=== PATIENT | male | born 1995 | race Caucasian/White ===

== ENCOUNTER 2017-01-06 11:35 | Emergency (ER) | payer SELFPAY ==
[~2017-01-06] VITALS: Ht 180.3 cm; Wt 110.0 kg
[~2017-01-06 11:35] MED LIST: PENI500T PO; ZOFR4TAB3 PO
[2017-01-06 11:37] VITALS: BP 146/97; PULSE 116; RESP 20; TEMP 98; O2SAT 99
--- NOTE | 2017-01-06 11:55 | PD ---
HPI Chief Complaint: Pain: Acute or Chronic Time Seen by Provider: 11:55 Travel History International Travel<30 days: No Contact w/Intl Traveler<30days: No Traveled to known affect area: No History of Present Illness HPI 21-year-old male with no significant medical history presents to emergency department for evaluation a left dorsal lateral foot pain with no definite injury. States he is unable to ambulate on his foot for the last 2 days. Pain is 8 out of 10. Denies any fever or chills. No alterations in sensation. No other symptoms to report. PFSH Past Medical History Medical History: Denies Significant Hx Social History Alcohol Use: No Tobacco Use: No Substance Use: No Allergies-Medications (Allergen,Severity, Reaction): Coded Allergies: No Known Allergies (Unverified , 01/06/17) Reported Meds & Prescriptions Reported Meds & Active Scripts Active Ibuprofen 800 Mg Tab 800 Mg PO Q8H PRN Penicillin V Potassium 500 Mg Tab 500 Mg PO Q8H 10 Days Review of Systems Except as stated in HPI: all other systems reviewed are Neg Physical Exam Narrative GENERAL: Well-nourished, well-developed male patient, in no acute distress SKIN: Warm and dry. HEAD: Normocephalic. EYES: No scleral icterus. No injection or drainage. NECK: Supple, trachea midline. No JVD or lymphadenopathy. CARDIOVASCULAR: Regular rate and rhythm without murmurs, gallops, or rubs. RESPIRATORY: Breath sounds equal bilaterally. No accessory muscle use. GASTROINTESTINAL: Abdomen soft, non-tender, nondistended. MUSCULOSKELETAL: No cyanosis, or edema. Tenderness illicit palpation of the dorsal lateral left foot. No obvious deformity. Mild swelling. Distal pulses are palpable. Cap refill is within normal limits. BACK: Nontender without obvious deformity. No CVA tenderness. Data Data Last Documented VS Vital Signs Date Time Temp Pulse Resp B/P Pulse Ox O2 Delivery O2 Flow Rate FiO2 01/06/17 11:37 98.0 116 20 146/97 99 Room Air Orders Foot, Complete ([id number]) (01/06/17 ) Splint Or Brace Apply/Monitor (01/06/17 13:00) Shoe Cast (01/06/17 ) MDM Medical Decision Making Medical Screen Exam Complete: Yes Emergency Medical Condition: Yes Medical Record Reviewed: Yes Differential Diagnosis Contusion versus fracture versus sprain versus dislocation Narrative Course 21-year-old male presents to the emergency department for evaluation of left foot pain. X-ray imaging is negative for acute bony abnormality. Patient was placed in a postop shoe, instructed to follow-up with podiatry. He agrees to return immediately with any acute worsening of symptoms. Diagnosis Primary Impression: Left foot pain Referrals: [employer] Primary Care Physician Patient Instructions: Foot Sprain (ED), General Instructions Additional Instructions: Ice and elevate to reduce pain and swelling Brace for support Follow-up with the primary care provider Seek podiatry evaluation if symptoms persist Return immediately with any acute worsening of symptoms Med/Other Pt SpecificInfo: Prescription(s) given Scripts Ibuprofen 800 Mg Qrp209 Mg PO Q8H PRN (PAIN SCALE 1 TO 10) #30 TAB Ref 0 Prov:Jenna Cervantes 01/06/17 Disposition: 01 DISCHARGE HOME Condition: Stable Jenna Cervantes Jan 06, 2017 11:55
[2017-01-06] MEDS ORDERED: IBUP800T23 PO (12:59)
--- NOTE | 2017-01-06 13:08 | RADRPT ---
EXAM DATE/TIME: 01/06/2017 12:36 [facility] COMPARISON: No previous studies available for comparison. INDICATIONS : Patient states no known injury. He cannot put pressure on foot for two days. MEDICAL HISTORY : None. SURGICAL HISTORY : None. ENCOUNTER: Initial ACUITY: 2 days PAIN SCORE: 7/10 LOCATION: Left Foot. FINDINGS: No acute fracture or subluxation seen of the left foot. Soft tissues are within normal limits. Base of the second toe proximal phalanx appears mildly expanded and with mild subchondral irregularit y. I believe this is most likely related to an old, healed fracture. CONCLUSION: 1. No acute fracture or subluxation seen of the left foot. 2. Suspected old, healed fracture of the second toe proximal phalanx. Mack Anna MD on January 06, 2017 at 13:05 Board Certified Radiologist. This report was verified electronically.
== END 2017-01-06 13:26 | disposition home or self-care (01) ==
LOC: NEPB 11:35
DX: M79.672 Pain in left foot (principal)
CPT/HCPCS: 73630; 99283; E0113; L3260